=== PATIENT | female | born 1990 | race Caucasian/White ===

== ENCOUNTER 2021-04-20 18:19 | Emergency (ER) | payer BC, OTHER ==
[~2021-04-20] VITALS: Ht 157.5 cm; Wt 52.2 kg
[~2021-04-20 18:19] MED LIST: ARIP5TAB10 PO; DULO20CA PO; ONDA4TAB8 PO; PANT20TA2 PO
--- NOTE | 2021-04-20 19:28 | NUR ---
BIBS FOR C/O ABD PAIN, N/V/D SINCE YESTERDAY. PT A/OX4. TOLERATING R/A WELL WITH NO SOB. AMBULATORY
--- NOTE | 2021-04-20 19:45 | NUR ---
URINE COLLECTED AND SENT TO LAB
[2021-04-20] MEDS ORDERED: IV NS 0.9% 1,000 ML BAG IV ONE (20:00)
[2021-04-20] MEDS ORDERED: METOCLOPRAMIDE HCL 10 MG/2 ML VIAL IV ONE (20:00)
[2021-04-20] MEDS ORDERED: diphenhydrAMINE HCL 50 MG/ML VIAL IV ONE (20:00)
[2021-04-20] MEDS ORDERED: DICYCLOMINE HCL INJ 20 MG/2 ML AMPUL IM ONE ×2 (20:00→20:19)
[2021-04-20 20:13] LABS: BASOPHILS % (AUTO) 0.4 % (0.0-2.0); EOSINOPHILS % (AUTO) 0.3 % (0.0-6.0); HEMATOCRIT 38 % (33-45); LYMPHOCYTES # (AUTO) 0.9 K/uL (0.8-4.8); LYMPHOCYTES % (AUTO) 10.6 % (20.0-44.0); MEAN CORPUSCULAR HGB CONC 34 g/dl (31.0-36.0); MEAN CORPUSCULAR VOLUME 89 fL (82-100); MONOCYTES # (AUTO) 0.2 K/uL (0.1-1.30); NEUTROPHILS # (AUTO) 6.9 K/uL (1.8-8.9); NEUTROPHILS % (AUTO) 85.7 % (43.0-81.0); PLATELET COUNT (AUTO) 342 K/uL (150-450); RED BLOOD CELL COUNT(AUTO) 4.26 MIL/uL (4.0-5.2); WHITE BLOOD COUNT (AUTO) 8.1 K/uL (4.3-11.0)
[2021-04-20] MEDS ORDERED: diphenhydrAMINE HCL 50 MG/ML VIAL ONE (20:18)
[2021-04-20] MEDS ORDERED: METOCLOPRAMIDE HCL 10 MG/2 ML VIAL ONE (20:18)
[2021-04-20 20:49] LABS: CALCIUM, SERUM 9.3 mg/dL (8.5-10.1); CREATININE 0.7 mg/dL (0.6-1.3); POTASSIUM 3.3 mmol/L (3.5-5.1)
[2021-04-20 20:51] LABS: BILIRUBIN,URINE NEGATIVE (NEGATIVE); COLOR,URINE YELLOW (YELLOW); LEUKOCYTE ESTERASE ,URINE NEGATIVE (NEGATIVE); NITRITE, URINE NEGATIVE (NEGATIVE); PROTEIN,URINE 30 mg/dl (NEGATIVE); UGLUCOSE NEGATIVE (NEGATIVE); UROBILINOGEN,URINE 0.2 EU/dL (0.2)
[2021-04-20 20:53] LABS: PH,URINE >8.5 (5.0-8.0)
[2021-04-20 20:55] LABS: ALBUMIN 4.2 g/dL (3.4-5.0); BILIRUBIN,DIRECT 0.1 mg/dL (0.0-0.2); BILIRUBIN,TOTAL 0.6 mg/dL (0.2-1.0); TOTAL PROTEIN, SERUM 8.2 g/dL (6.4-8.2)
[2021-04-20 20:59] LABS: RBC,URINE 0-2 /HPF (0-2)
[2021-04-20 21:00] LABS: BACTERIA,URINE None seen /HPF (None Seen); SQUAMOUS EPITHELIAL CELL,UR 0-2 /HPF (None Seen); URINE AMORPHOUS PHOSPHATES Moderate /HPF (None Seen); WBC,URINE 0-2 /HPF (0-3)
[2021-04-20] MEDS ORDERED: DICY10CA37 PO (22:18)
[2021-04-20] MEDS ORDERED: METO-295 PO (22:18)
--- NOTE | 2021-04-20 22:40 | NUR ---
Patient discharged to home in stable condition. RX Written and verbal after care instructions given. Patient verbalizes understanding of instruction. DC IV. PT AMBULATORY
[2021-04-20 22:41] VITALS: BP 121/85
== END 2021-04-20 22:42 | disposition home or self-care (01) ==
LOC: ER 18:25
DX: R10.84 Generalized abdominal pain (principal); R11.2 Nausea with vomiting, unspecified; F41.9 Anxiety disorder, unspecified; R11.15 Cyclical vomiting syndrome unrelated to migraine; K21.9 Gastro-esophageal reflux disease without esophagitis; Z88.1 Allergy status to other antibiotic agents; Z79.899 Other long term (current) drug therapy
CPT/HCPCS: 36415; 80048; 80076; 81001; 83690; 84702; 85025; 96361; 96372; 96374; 96375; 99284; J0500; J1200; J2765; J7030

== ENCOUNTER 2021-12-31 05:19 | Emergency (ER) | payer BC ==
[~2021-12-31] VITALS: Ht 157.5 cm; Wt 52.2 kg
[~2021-12-31 05:19] MED LIST changes: +DICY10CA37 PO; +METO-295 PO
[2021-12-31] MEDS ORDERED: ONDANSETRON HCL/PF 4 MG/2 ML VIAL ONE (06:15)
[2021-12-31] MEDS ORDERED: LORAZEPAM INJ 2 MG/ML VIAL ONE (06:15)
--- NOTE | 2021-12-31 06:15 | NUR ---
BIBS C/O ANXIETY AND CYCLIC VOMITTING FLARE-UP. PT BELIEVES THIS MAY BE RELATED TO RECENT CHANGE IN MEDICATIONS. PT AWAKE AND ALERT X4 AMBULATORY WITH STEADY GAIT BREATHING EVEN AND UNLABORED. ALL V/S WNL.
[2021-12-31] MEDS ORDERED: IV NS 0.9% 1,000 ML BAG IV ONE (06:30)
[2021-12-31] MEDS ORDERED: ONDANSETRON HCL/PF 4 MG/2 ML VIAL IVP ONE (06:30)
[2021-12-31] MEDS ORDERED: LORAZEPAM INJ 2 MG/ML VIAL IV ONE (06:30)
[2021-12-31] MEDS ORDERED: ONDANSETRON HCL/PF - ER 4 MG/2 ML VIAL IV ONE (06:30)
[2021-12-31 06:41] LABS: BASOPHILS % (AUTO) 0.5 % (0.0-2.0); EOSINOPHILS % (AUTO) 4.2 % (0.0-6.0); HEMATOCRIT 42 % (33-45); HEMOGLOBIN 13.9 g/dL (11.5-14.8); LYMPHOCYTES # (AUTO) 2.1 K/uL (0.8-4.8); LYMPHOCYTES % (AUTO) 22.1 % (20.0-44.0); MEAN CORPUSCULAR HGB CONC 33 g/dl (31.0-36.0); MEAN CORPUSCULAR VOLUME 89 fL (82-100); MONOCYTES # (AUTO) 0.5 K/uL (0.1-1.30); MONOCYTES % (AUTO) 5.5 % (2.0-12.0); NEUTROPHILS # (AUTO) 6.5 K/uL (1.8-8.9); NEUTROPHILS % (AUTO) 67.7 % (43.0-81.0); PLATELET COUNT (AUTO) 346 K/uL (150-450); RED BLOOD CELL COUNT(AUTO) 4.68 MIL/uL (4.0-5.2); WHITE BLOOD COUNT (AUTO) 9.7 K/uL (4.3-11.0)
--- NOTE | 2021-12-31 06:45 | NUR ---
22GIV LINE AT HAND ESTABLISHED BLOOD DRAWN AND SENT TO LAB. PT UNABLE TO PROVIDE URINE SPECIMEN AT THIS TIME. URINE CUP AT BEDSIDE.
[2021-12-31 06:57] LABS: BILIRUBIN,DIRECT 0.1 mg/dL (0.0-0.2); BILIRUBIN,TOTAL 0.6 mg/dL (0.2-1.0); CREATININE 0.9 mg/dL (0.6-1.3); POTASSIUM 3.6 mmol/L (3.5-5.1); TOTAL PROTEIN, SERUM 8.2 g/dL (6.4-8.2)
[2021-12-31 07:07] LABS: CALCIUM, SERUM 9.2 mg/dL (8.5-10.1)
[2021-12-31] MEDS ORDERED: ONDA4TAB5 PO (07:58)
--- NOTE | 2021-12-31 08:12 | NUR ---
IV removed. Catheter intact and site benign. Pressure and 4x4 applied to site. No bleeding noted. Patient discharged to home in stable condition. Written and verbal after care instructions given. Patient verbalizes understanding of instruction.
[2021-12-31 08:13] VITALS: BP 121/72
== END 2021-12-31 08:14 | disposition home or self-care (01) ==
LOC: ER 05:26
DX: R11.15 Cyclical vomiting syndrome unrelated to migraine (principal); F41.9 Anxiety disorder, unspecified; F32.A Depression, unspecified; G89.29 Other chronic pain; Z87.19 Personal history of other diseases of the digestive system; Z88.8 Allergy status to other drugs, medicaments and biological substances; Z79.899 Other long term (current) drug therapy
CPT/HCPCS: 36415; 80048; 80076; 83690; 85025; 96361; 96374; 96375; 99284; J2060; J2405; J7030

== ENCOUNTER 2022-02-06 04:21 | Emergency (ER) | payer BC ==
[~2022-02-06] VITALS: Ht 157.5 cm; Wt 56.7 kg
[~2022-02-06 04:21] MED LIST changes: +ONDA4TAB5 PO
--- NOTE | 2022-02-06 05:50 | NUR ---
BIBSELF C/O GEN ABDOMINAL PAIN. WITH NASUEA AND VOMITING SINCE MIDNIGHT. PATIENT STATES SHE BELIEVES SHE IS HAVING A GASTROPERESIS EPISODE. PATIENT IS CONNECTED TO BEDSIDE MONITOR. PROVIDED WITH EMESIS BAG.
[2022-02-06] MEDS ORDERED: ONDANSETRON HCL/PF 4 MG/2 ML VIAL ONE (05:51)
[2022-02-06] MEDS: ONDANSETRON HCL/PF 4 MG/2 ML VIAL IVP ONE (06:01)
[2022-02-06] MEDS: IV NS 0.9% 1,000 ML BAG IV ONE (06:01)
--- NOTE | 2022-02-06 06:06 | NUR ---
RIGHT FOREARM 22G PIV.
[2022-02-06 06:44] LABS: BASOPHILS % (AUTO) 0.3 % (0.0-2.0); EOSINOPHILS % (AUTO) 0.2 % (0.0-6.0); HEMATOCRIT 42 % (33-45); HEMOGLOBIN 14.1 g/dL (11.5-14.8); LYMPHOCYTES # (AUTO) 1.3 K/uL (0.8-4.8); LYMPHOCYTES % (AUTO) 10.9 % (20.0-44.0); MEAN CORPUSCULAR HGB CONC 34 g/dl (31.0-36.0); MEAN CORPUSCULAR VOLUME 88 fL (82-100); MONOCYTES # (AUTO) 0.3 K/uL (0.1-1.30); MONOCYTES % (AUTO) 2.9 % (2.0-12.0); NEUTROPHILS # (AUTO) 10.1 K/uL (1.8-8.9); NEUTROPHILS % (AUTO) 85.7 % (43.0-81.0); PLATELET COUNT (AUTO) 339 K/uL (150-450); RED BLOOD CELL COUNT(AUTO) 4.73 MIL/uL (4.0-5.2); WHITE BLOOD COUNT (AUTO) 11.7 K/uL (4.3-11.0)
[2022-02-06] MEDS ORDERED: METOCLOPRAMIDE HCL 10 MG/2 ML VIAL ONE (06:45)
[2022-02-06] MEDS: LORAZEPAM INJ 2 MG/ML VIAL IV ONE (06:55)
[2022-02-06] MEDS: METOCLOPRAMIDE HCL 10 MG/2 ML VIAL IV ONE (06:55)
--- NOTE | 2022-02-06 06:55 | NUR ---
URINE SAMPLE COLLECTED
[2022-02-06] MEDS ORDERED: PANT20TA2 PO (07:03)
[2022-02-06] MEDS ORDERED: DICY10CA37 PO (07:03)
[2022-02-06] MEDS ORDERED: METO-295 PO (07:03)
[2022-02-06 07:27] LABS: ALBUMIN 4.8 g/dL (3.4-5.0); BILIRUBIN,DIRECT 0.2 mg/dL (0.0-0.2); BILIRUBIN,TOTAL 0.8 mg/dL (0.2-1.0); CALCIUM, SERUM 9.5 mg/dL (8.5-10.1); CREATININE 0.8 mg/dL (0.6-1.3); TOTAL PROTEIN, SERUM 8.9 g/dL (6.4-8.2)
[2022-02-06 07:30] LABS: BILIRUBIN,URINE NEGATIVE (NEGATIVE); COLOR,URINE YELLOW (YELLOW); LEUKOCYTE ESTERASE ,URINE NEGATIVE (NEGATIVE); NITRITE, URINE NEGATIVE (NEGATIVE); PROTEIN,URINE NEGATIVE (NEGATIVE); UGLUCOSE NEGATIVE (NEGATIVE); UROBILINOGEN,URINE 0.2 EU/dL (0.2)
[2022-02-06] MEDS: IV NS 0.9% 1,000 ML IV ONE (07:30)
[2022-02-06 07:33] LABS: POTASSIUM 3.2 mmol/L (3.5-5.1)
[2022-02-06 07:59] LABS: BACTERIA,URINE 3+ /HPF (None Seen); RBC,URINE 0-2 /HPF (0-2); WBC,URINE 0-2 /HPF (0-3)
--- NOTE | 2022-02-06 08:57 | NUR ---
IV removed. Catheter intact and site benign. Pressure and 4x4 applied to site. No bleeding noted.Patient discharged to home in stable condition. Written and verbal after care instructions given. Patient verbalizes understanding of instruction.
[2022-02-06 08:58] VITALS: BP 116/62
== END 2022-02-06 08:58 | disposition home or self-care (01) ==
LOC: ER 04:23
DX: R11.15 Cyclical vomiting syndrome unrelated to migraine (principal); R10.84 Generalized abdominal pain; R82.4 Acetonuria; E86.0 Dehydration; G89.29 Other chronic pain; F41.9 Anxiety disorder, unspecified; F32.A Depression, unspecified; Z88.0 Allergy status to penicillin; Z79.899 Other long term (current) drug therapy
CPT/HCPCS: 36415; 80048; 80076; 81001; 83690; 84702; 84703; 85025; 87086; 96361; 96374; 96375; 99284; J2060; J2405; J2765; J7030

== ENCOUNTER 2022-04-10 13:56 | Emergency (ER) | payer BC ==
[~2022-04-10] VITALS: Ht 157.5 cm; Wt 52.2 kg
--- NOTE | 2022-04-10 14:21 | NUR ---
Patient came in to the c/o nausea vomiting admits on smoking weed. On room air, breathing evenly and unlabored, kept comfortable, will continue to monitor accordingly.
[2022-04-10] MEDS ORDERED: LORAZEPAM 1 MG TABLET ONE (14:56)
[2022-04-10] MEDS ORDERED: ONDANSETRON HCL/PF 4 MG/2 ML VIAL ONE ×2 (14:56→16:31)
[2022-04-10] MEDS ORDERED: IV NS 0.9% 1,000 ML BAG IV ONE (15:00)
[2022-04-10] MEDS ORDERED: ONDANSETRON HCL/PF 4 MG/2 ML VIAL IV ONE ×2 (15:00→16:30)
[2022-04-10] MEDS ORDERED: LORAZEPAM 1 MG TABLET PO ONE (15:00)
[2022-04-10 15:52] LABS: BASOPHILS % (AUTO) 0.4 % (0.0-2.0); EOSINOPHILS % (AUTO) 1.2 % (0.0-6.0); HEMATOCRIT 37 % (33-45); HEMOGLOBIN 12.3 g/dL (11.5-14.8); LYMPHOCYTES # (AUTO) 0.8 K/uL (0.8-4.8); LYMPHOCYTES % (AUTO) 9.4 % (20.0-44.0); MEAN CORPUSCULAR HGB CONC 33 g/dl (31.0-36.0); MEAN CORPUSCULAR VOLUME 90 fL (82-100); MONOCYTES # (AUTO) 0.4 K/uL (0.1-1.30); MONOCYTES % (AUTO) 4.5 % (2.0-12.0); NEUTROPHILS # (AUTO) 7.3 K/uL (1.8-8.9); NEUTROPHILS % (AUTO) 84.5 % (43.0-81.0); PLATELET COUNT (AUTO) 249 K/uL (150-450); RED BLOOD CELL COUNT(AUTO) 4.13 MIL/uL (4.0-5.2); WHITE BLOOD COUNT (AUTO) 8.6 K/uL (4.3-11.0)
[2022-04-10 16:14] LABS: CALCIUM, SERUM 8.7 mg/dL (8.5-10.1); CREATININE 0.8 mg/dL (0.6-1.3); POTASSIUM 3.1 mmol/L (3.5-5.1)
[2022-04-10 16:19] LABS: ALBUMIN 3.9 g/dL (3.4-5.0); BILIRUBIN,DIRECT 0.2 mg/dL (0.0-0.2); BILIRUBIN,TOTAL 0.9 mg/dL (0.2-1.0); TOTAL PROTEIN, SERUM 7.2 g/dL (6.4-8.2)
[2022-04-10 16:30] LABS: BILIRUBIN,URINE NEGATIVE (NEGATIVE); COLOR,URINE YELLOW (YELLOW); LEUKOCYTE ESTERASE ,URINE NEGATIVE (NEGATIVE); NITRITE, URINE NEGATIVE (NEGATIVE); PH,URINE 8.5 (5.0-8.0); PROTEIN,URINE NEGATIVE (NEGATIVE); UGLUCOSE NEGATIVE (NEGATIVE); UROBILINOGEN,URINE 0.2 EU/dL (0.2)
[2022-04-10] MEDS ORDERED: LORAZEPAM INJ 2 MG/ML VIAL IV ONE (16:30)
[2022-04-10] MEDS ORDERED: LORAZEPAM INJ 2 MG/ML VIAL ONE (16:32)
[2022-04-10 16:39] LABS: BACTERIA,URINE None seen /HPF (None Seen); RBC,URINE 0-2 /HPF (0-2); SQUAMOUS EPITHELIAL CELL,UR 0-2 /HPF (None Seen); URINE AMORPHOUS PHOSPHATES Moderate /HPF (None Seen); WBC,URINE 0-2 /HPF (0-3)
[2022-04-10 18:03] VITALS: BP 128/77
--- NOTE | 2022-04-10 18:04 | NUR ---
Patient discharged to home in stable condition. Written and verbal after care instructions given. Patient verbalizes understanding of instruction.IV removed. Catheter intact and site benign. Pressure and 4x4 applied to site. No bleeding noted.
== END 2022-04-10 18:04 | disposition home or self-care (01) ==
LOC: ER 13:57
DX: F41.0 Panic disorder [episodic paroxysmal anxiety] (principal); R11.2 Nausea with vomiting, unspecified; F12.90 Cannabis use, unspecified, uncomplicated; F32.A Depression, unspecified; F43.10 Post-traumatic stress disorder, unspecified; G89.29 Other chronic pain; Z88.1 Allergy status to other antibiotic agents; Z79.899 Other long term (current) drug therapy
CPT/HCPCS: 99284; 96374; 96361; 96375; 96376; 85025; 80048; 83690; 80076; 84703; 81001; 36415; J2060; J2405 ×2; J7030

== ENCOUNTER 2022-05-09 11:34 | Emergency (ER) | payer BC ==
[~2022-05-09] VITALS: Ht 157.5 cm; Wt 54.4 kg
--- NOTE | 2022-05-09 11:55 | NUR ---
DR SANCHEZ AT BEDSIDE FOR EVAL
[2022-05-09] MEDS ORDERED: HALOPERIDOL LACTATE INJ 5 MG/ML VIAL IM ONE (12:00)
[2022-05-09] MEDS ORDERED: HALOPERIDOL LACTATE INJ 5 MG/ML VIAL ONE (12:01)
[2022-05-09] MEDS ORDERED: diphenhydrAMINE HCL 50 MG/ML VIAL ONE (12:48)
[2022-05-09] MEDS ORDERED: diphenhydrAMINE HCL 50 MG/ML VIAL IM ONE (13:00)
--- NOTE | 2022-05-09 13:40 | NUR ---
Patient discharged to home in stable condition. Written and verbal after care instructions given. Patient verbalizes understanding of instruction.
[2022-05-09 13:46] VITALS: BP 125/75
== END 2022-05-09 13:40 | disposition home or self-care (01) ==
LOC: ER 11:37
DX: R11.10 Vomiting, unspecified (principal); G89.29 Other chronic pain; F41.9 Anxiety disorder, unspecified; F32.A Depression, unspecified; F17.200 Nicotine dependence, unspecified, uncomplicated; Z88.0 Allergy status to penicillin; Z79.899 Other long term (current) drug therapy
CPT/HCPCS: 99284; 96372 ×2; J1200; J1630

== ENCOUNTER 2022-07-30 06:52 | Emergency (ER) | payer BC ==
[~2022-07-30] VITALS: Ht 154.9 cm; Wt 54.4 kg
--- NOTE | 2022-07-30 07:00 | NUR ---
BIBS W/ C/O "ANXIETY ATTACK". TO ER BED 12. ATTACHED TO MONITOR.
--- NOTE | 2022-07-30 07:20 | NUR ---
PT SEEN BY MD AT BEDSIDE
[2022-07-30] MEDS ORDERED: IV NS 0.9% 1,000 ML IV ONE (07:30)
[2022-07-30] MEDS ORDERED: LORAZEPAM INJ 2 MG/ML VIAL IV ONE (07:30)
[2022-07-30] MEDS ORDERED: LORAZEPAM INJ 2 MG/ML VIAL ONE (07:35)
[2022-07-30] MEDS ORDERED: HALOPERIDOL LACTATE INJ 5 MG/ML VIAL IV ONE (08:00)
[2022-07-30] MEDS ORDERED: HALOPERIDOL LACTATE INJ 5 MG/ML VIAL ONE (08:00)
--- NOTE | 2022-07-30 08:01 | NUR ---
lfa #[id number] established, fluids infusing.
--- NOTE | 2022-07-30 08:45 | NUR ---
PT ASKS FOR FLUIDS TO FINISH INFUSING BEFORE BEING DISCHARGED.
--- NOTE | 2022-07-30 08:55 | NUR ---
IV removed. Catheter intact and site benign. Pressure and 4x4 applied to site. No bleeding noted.
[2022-07-30 08:57] VITALS: BP 128/70
--- NOTE | 2022-07-30 08:57 | NUR ---
Patient discharged to home in stable condition. Written and verbal after care instructions given. Patient verbalizes understanding of instruction.
== END 2022-07-30 08:58 | disposition home or self-care (01) ==
LOC: ER 06:53
DX: R11.2 Nausea with vomiting, unspecified (principal); G89.29 Other chronic pain; F17.200 Nicotine dependence, unspecified, uncomplicated; Z88.0 Allergy status to penicillin; Z79.899 Other long term (current) drug therapy
CPT/HCPCS: 99284; 96374; 96361; 96375; J2060; J1630; J7030

== ENCOUNTER 2022-10-08 16:44 | Emergency (ER) | payer BC, OTHER ==
[~2022-10-08] VITALS: Ht 157.5 cm; Wt 52.2 kg
--- NOTE | 2022-10-08 16:50 | NUR ---
RECEIVED PT 32 YRS FEMALE C/O ANXIETY AND SCREAMING CRAYING
--- NOTE | 2022-10-08 17:00 | NUR ---
SEEN BY PROVIDER
[2022-10-08] MEDS ORDERED: ONDANSETRON HCL/PF 4 MG/2 ML VIAL ONE (17:27)
[2022-10-08] MEDS ORDERED: LORAZEPAM INJ 2 MG/ML VIAL ONE (17:28)
[2022-10-08] MEDS ORDERED: ONDANSETRON HCL/PF 4 MG/2 ML VIAL IVP ONE (17:30)
[2022-10-08] MEDS ORDERED: LORAZEPAM INJ 2 MG/ML VIAL IV ONE (17:30)
[2022-10-08] MEDS ORDERED: IV NS 0.9% 1,000 ML BAG IV ONE (17:30)
[2022-10-08 17:32] LABS: BASOPHILS % (AUTO) 0.5 % (0.0-2.0); EOSINOPHILS % (AUTO) 2.1 % (0.0-6.0); HEMATOCRIT 40 % (33-45); HEMOGLOBIN 12.8 g/dL (11.5-14.8); LYMPHOCYTES # (AUTO) 1.2 K/uL (0.8-4.8); LYMPHOCYTES % (AUTO) 13.5 % (20.0-44.0); MEAN CORPUSCULAR HGB CONC 32 g/dl (31.0-36.0); MEAN CORPUSCULAR VOLUME 91 fL (82-100); MONOCYTES # (AUTO) 0.2 K/uL (0.1-1.30); MONOCYTES % (AUTO) 2.6 % (2.0-12.0); NEUTROPHILS # (AUTO) 7.3 K/uL (1.8-8.9); NEUTROPHILS % (AUTO) 81.3 % (43.0-81.0); PLATELET COUNT (AUTO) 304 K/uL (150-450)
--- NOTE | 2022-10-08 18:50 | NUR ---
PT RESPONDED TO TX FEELING BEATTER ANXIETY RESOLVED
[2022-10-08 18:51] LABS: CALCIUM, SERUM 9.3 mg/dL (8.5-10.1); CREATININE 0.9 mg/dL (0.6-1.3); POTASSIUM 4.2 mmol/L (3.5-5.1)
[2022-10-08 19:00] LABS: ALBUMIN 3.9 g/dL (3.4-5.0); BILIRUBIN,DIRECT 0.1 mg/dL (0.0-0.2); BILIRUBIN,TOTAL 0.5 mg/dL (0.2-1.0); TOTAL PROTEIN, SERUM 7.9 g/dL (6.4-8.2)
--- NOTE | 2022-10-08 19:27 | NUR ---
IV removed. Catheter intact and site benign. Pressure and 4x4 applied to site. No bleeding noted.
[2022-10-08 19:33] VITALS: BP 101/48
--- NOTE | 2022-10-08 19:37 | NUR ---
INSTRACTED PT NOT TO DIVE HOME AND CALL [facility]
== END 2022-10-08 19:38 | disposition home or self-care (01) ==
LOC: ER 16:50
DX: F41.9 Anxiety disorder, unspecified (principal); F32.A Depression, unspecified; Z79.899 Other long term (current) drug therapy; Z88.1 Allergy status to other antibiotic agents
CPT/HCPCS: 99284; 96374; 96361; 96375; 85025; 80048; 83690; 80076; 36415; J2060; J2405; J7030

== ENCOUNTER 2023-03-15 08:38 | Emergency (ER) | payer BC, OTHER ==
[~2023-03-15] VITALS: Ht 157.5 cm; Wt 47.6 kg
[2023-03-15] MEDS ORDERED: ONDANSETRON HCL/PF 4 MG/2 ML VIAL ONE (08:52)
[2023-03-15] MEDS ORDERED: HALOPERIDOL LACTATE INJ 5 MG/ML VIAL ONE (08:52)
[2023-03-15] MEDS ORDERED: ONDANSETRON HCL/PF 4 MG/2 ML VIAL IVP ONE (09:00)
[2023-03-15] MEDS ORDERED: IV NS 0.9% 1,000 ML BAG IV ONE (09:00)
[2023-03-15] MEDS ORDERED: HALOPERIDOL LACTATE INJ 5 MG/ML VIAL IM ONE (09:00)
[2023-03-15 09:09] LABS: BASOPHILS # (AUTO) 0.1 K/uL (0.0-0.2); BASOPHILS % (AUTO) 1.2 % (0.0-2.0); EOSINOPHILS % (AUTO) 7.9 % (0.0-6.0); HEMATOCRIT 40 % (33-45); HEMOGLOBIN 12.9 g/dL (11.5-14.8); LYMPHOCYTES % (AUTO) 24.3 % (20.0-44.0); MEAN CORPUSCULAR HEMOGLOBIN 29 PG (26.0-33.0); MEAN CORPUSCULAR HGB CONC 33 g/dl (31.0-36.0); MEAN CORPUSCULAR VOLUME 88 fL (82-100); MONOCYTES # (AUTO) 0.6 K/uL (0.1-1.30); MONOCYTES % (AUTO) 4.6 % (2.0-12.0); NEUTROPHILS # (AUTO) 7.6 K/uL (1.8-8.9); PLATELET COUNT (AUTO) 359 K/uL (150-450); RED BLOOD CELL COUNT(AUTO) 4.49 MIL/uL (4.0-5.2); WHITE BLOOD COUNT (AUTO) 12.2 K/uL (4.3-11.0)
[2023-03-15 09:29] LABS: ALBUMIN 4.1 g/dL (3.4-5.0); BILIRUBIN,DIRECT 0.1 mg/dL (0.0-0.2); BILIRUBIN,TOTAL 0.7 mg/dL (0.2-1.0); CALCIUM, SERUM 9.5 mg/dL (8.5-10.1); CREATININE 0.9 mg/dL (0.6-1.3); POTASSIUM 3.4 mmol/L (3.5-5.1); TOTAL PROTEIN, SERUM 8.2 g/dL (6.4-8.2)
[2023-03-15 10:24] VITALS: BP 126/74; TEMP 97.8; O2SAT 100
== END 2023-03-15 10:25 | disposition home or self-care (01) ==
LOC: ER 08:41
DX: F41.0 Panic disorder [episodic paroxysmal anxiety] (principal); R11.2 Nausea with vomiting, unspecified; F41.9 Anxiety disorder, unspecified; F32.A Depression, unspecified; F17.200 Nicotine dependence, unspecified, uncomplicated; Z79.899 Other long term (current) drug therapy; Z88.1 Allergy status to other antibiotic agents
CPT/HCPCS: 99284; 96374; 96361; 85025; 80048; 80076; 36415; 96372; J1630; J2405; J7030

== ENCOUNTER 2023-05-13 10:25 | Emergency (ER) | payer BC ==
[~2023-05-13] VITALS: Ht 157.5 cm; Wt 47.6 kg
[2023-05-13] MEDS ORDERED: ONDANSETRON HCL/PF 4 MG/2 ML VIAL ONE (10:44)
[2023-05-13] MEDS: ONDANSETRON HCL/PF 4 MG/2 ML VIAL IVP ONE (10:49)
[2023-05-13] MEDS: IV NS 0.9% 1,000 ML BAG IV ONE (11:02)
[2023-05-13] MEDS ORDERED: diphenhydrAMINE HCL 50 MG/ML VIAL ONE (11:03)
[2023-05-13] MEDS: diphenhydrAMINE HCL 50 MG/ML VIAL IV ONE (11:05)
[2023-05-13 11:15] LABS: BASOPHILS # (AUTO) 0.1 K/uL (0.0-0.2); BASOPHILS % (AUTO) 0.8 % (0.0-2.0); EOSINOPHILS # (AUTO) 0.5 K/uL (0.0-0.7); HEMATOCRIT 41 % (33-45); HEMOGLOBIN 13.7 g/dL (11.5-14.8); LYMPHOCYTES % (AUTO) 29.3 % (20.0-44.0); MEAN CORPUSCULAR HEMOGLOBIN 29 PG (26.0-33.0); MEAN CORPUSCULAR HGB CONC 33 g/dl (31.0-36.0); MEAN CORPUSCULAR VOLUME 88 fL (82-100); MONOCYTES # (AUTO) 0.4 K/uL (0.1-1.30); MONOCYTES % (AUTO) 3.5 % (2.0-12.0); NEUTROPHILS # (AUTO) 6.3 K/uL (1.8-8.9); NEUTROPHILS % (AUTO) 61.4 % (43.0-81.0); PLATELET COUNT (AUTO) 388 K/uL (150-450); RED BLOOD CELL COUNT(AUTO) 4.67 MIL/uL (4.0-5.2); RED CELL DISTRIBUTION WIDTH 14.8 % (11.5-15.0); WHITE BLOOD COUNT (AUTO) 10.3 K/uL (4.3-11.0)
[2023-05-13] MEDS ORDERED: MORPHINE SULFATE INJ 4 MG/ML DISP.SYRIN ONE (11:36)
[2023-05-13] MEDS ORDERED: METOCLOPRAMIDE HCL 10 MG/2 ML VIAL ONE (11:36)
[2023-05-13 11:37] LABS: APPEARANCE,URINE TURBID (CLEAR); BILIRUBIN,URINE NEGATIVE (NEGATIVE); BLOOD, URINE NEGATIVE Ery/uL (NEGATIVE); COLOR,URINE YELLOW (YELLOW); KETONES,URINE TRACE mg/dL (NEGATIVE); LEUKOCYTE ESTERASE ,URINE NEGATIVE (NEGATIVE); NITRITE, URINE NEGATIVE (NEGATIVE); PH,URINE 8.5 (5.0-8.0); PROTEIN,URINE TRACE mg/dl (NEGATIVE); UGLUCOSE NEGATIVE (NEGATIVE); UROBILINOGEN,URINE 0.2 EU/dL (0.2)
[2023-05-13 11:39] LABS: PREGNANCY TEST URINE QUAL NEGATIVE (NEGATIVE)
[2023-05-13] MEDS: MORPHINE SULFATE INJ 2 MG/ML DISP.SYRIN IV ONE (11:41)
[2023-05-13] MEDS: METOCLOPRAMIDE HCL 10 MG/2 ML VIAL IV ONE (11:42)
[2023-05-13 12:06] LABS: CALCIUM, SERUM 9.2 mg/dL (8.5-10.1); CREATININE 0.8 mg/dL (0.6-1.3); POTASSIUM 3.6 mmol/L (3.5-5.1)
[2023-05-13 12:11] LABS: ADD URINE CULTURE NO; BACTERIA,URINE Few /HPF (None Seen); RBC,URINE 0-2 /HPF (0-2); SQUAMOUS EPITHELIAL CELL,UR Moderate /HPF (None Seen); URINE AMORPHOUS PHOSPHATES Many /HPF (None Seen); WBC,URINE 0-2 /HPF (0-3)
[2023-05-13 12:25] LABS: BILIRUBIN,DIRECT 0.1 mg/dL (0.0-0.2); BILIRUBIN,TOTAL 0.8 mg/dL (0.2-1.0); TOTAL PROTEIN, SERUM 8.3 g/dL (6.4-8.2)
[2023-05-13 12:40] LABS: ALBUMIN 4.4 g/dL (3.4-5.0)
[2023-05-13] MEDS ORDERED: METO-295 PO (13:02)
[2023-05-13] MEDS ORDERED: PANT20TA2 PO (13:02)
[2023-05-13] MEDS ORDERED: DICY10CA37 PO (13:02)
[2023-05-13 13:21] VITALS: BP 120/80; TEMP 98; O2SAT 100
== END 2023-05-13 13:22 | disposition home or self-care (01) ==
LOC: ER 10:25
DX: E86.0 Dehydration (principal); R11.10 Vomiting, unspecified; R10.84 Generalized abdominal pain; R11.15 Cyclical vomiting syndrome unrelated to migraine; R19.7 Diarrhea, unspecified; F41.9 Anxiety disorder, unspecified; F32.A Depression, unspecified; F17.200 Nicotine dependence, unspecified, uncomplicated; Z79.899 Other long term (current) drug therapy; Z88.1 Allergy status to other antibiotic agents
CPT/HCPCS: 99285; 74176; 96374; 96375; 76856; 96361; 85025; 80048; 83690; 80076; 84703; 81001; 36415; J1200; J2270; J2765; J2405; J7030

== ENCOUNTER 2024-06-30 12:38 | Emergency (ER) | payer BC | END 2024-06-30 13:46 | disposition home or self-care (01) | LOC: ER 12:40 | DX: Z53.21 Procedure and treatment not carried out due to patient leaving prior to being seen by health care provider (principal) ==